=== PATIENT | male | born 1965 | race Two or more races ===

== ENCOUNTER 2024-05-31 15:34 | Emergency (ER) | payer OTHER ==
[~2024-05-31] VITALS: Ht 177.8 cm; Wt 83.9 kg
[~2024-05-31 15:34] MED LIST: CALAN SR120 MG PO; CARTIA XT240 MG PO; CRESTOR10 MG PO; FENOFIBRATE54 MG PO; HYZAAR 100/25 T1 TAB PO; MAVIK4 MG PO; POTASSIUM 25 M25 MEQ PO; SIMVASTATIN10 MG PO; TRICOR145 MG PO
[2024-05-31] MEDS ORDERED: LIPITOR40 M1 PO (15:47)
[2024-05-31] MEDS ORDERED: ZETIA10 MG (15:48)
[2024-05-31] MEDS ORDERED: ZYLOPRIM100 M1 (15:48)
[2024-05-31] MEDS ORDERED: SPIRONOLACTONE25 MG PO (15:48)
[2024-05-31] MEDS ORDERED: COZAAR50 MG PO (15:48)
[2024-05-31] MEDS ORDERED: FLONASE16 GM NS (15:49)
== END 2024-05-31 17:58 | disposition home or self-care (01) ==
LOC: ER 15:35
DX: K64.9 Unspecified hemorrhoids (principal); I10 Essential (primary) hypertension; Z91.013 Allergy to seafood